=== PATIENT | female | born 1955 | race Caucasian/White ===

== ENCOUNTER → 2018-05-05 | Outpatient (CLI) | payer OTHER ==
[~2018-05-05] VITALS: Ht 152.4 cm; Wt 60.8 kg
[~2018-05-05] MED LIST: ASPIR 8181 MG PO; ATIVAN0.5 MG PO; ATORVASTATIN CA40 MG PO; BYSTOLIC 5 MG5 M1 PO; CALCIUM 600 +1 EAC8 PO; CELEBREX 200 M200 M1 PO; CENTRUM SILVER1 EAC4 PO; COZAAR 25 MG TA25 M1 PO; DEXILANT60 MG PO; FLONASE 0.05%50 MCG NASAL; LASIX 20 MG TAB20 MG PO; LASIX 40 MG TAB40 M2 PO; LIPITOR80 MG PO; METFORMIN HCL500 MG PO; NORVASC2.5 MG PO; PLAVIX 75 MG TA75 M1 PO; RANEXA1000 MG PO; VITAMIN B-1100 M1 PO; WELLBUTRIN SR150 M1 PO; XANAX 0.25 MG0.25 MG PO
--- NOTE | ~2018-05-05 | CATHLAB ---
[facility] [place] [place] [address] INVASIVE PROCEDURE REPORT Name: HIPOLITO ALLISON Room #: REG [facility]#: [id number] Admission: 05/05/18 Attend Phys: Romain Maxwell MD Discharge: Date of : 59 Date of Service: 05/05/18 1637 Report #: [id number] THIS REPORT FOR: //name// APPROVED REPORT Study performed: 05/05/2018 09:14:58 Patient Details Patient Status: Out-Patient Room #: The patient is a 63 year-old female Event Personnel Romain Maxwell Maitre D', Lamont Mahoney RN, Cielo Ingram Sandifer, David Monitor Procedures Performed Art Access - R radial artery Left Heart Cath w/or w/o Coronaries [id number] [facility] [id number] Initial Mod Sed Same Phys/QHP Gr5y [id number] Hemostasis with Hemoband Indication Dyspnea, Positive stress test, Chest pain Risk Factors Hypercholesterolemia, Hypertension Previous Procedures/Diagnoses Previous CHF Procedure Narrative The patient was brought electively to the Cardiac Catheterization Laboratory and was prepped and draped in a sterile manner. The Right Wrist^ was infiltrated with 1% Lidocaine subcutaneous anesthesia. A TRANSRADIAL SLENDER 6F GLIDESHEATH KIT #[id number] sheath was inserted into the Right Radial Artery^. Coronary angiography was performed using coronary diagnostic catheters. The right coronary system was accessed and visualized with a JR 4 catheter. The left coronary system was accessed and visualized with a JL 3.5 catheter. The left ventricle was accessed and visualized with a JR 4 catheter. Closure device was deployed with a Fr VASC BAND R 24CM #[id number]. The patient tolerated the procedure well and there were no complications associated with the procedure. There was no hematoma. Intraoperative Conscious Sedation Sedation start time: 10:10 Case end Time: [facility] [address] [place] [address] INVASIVE PROCEDURE REPORT Name: HIPOLITO ALLISON Room #: REG [facility]#: [id number] Admission: 05/05/18 Attend Phys: Romain Maxwell MD Discharge: Date of : 59 Date of Service: 05/05/18 1637 Report #: [id number] 10:30 Fentanyl 25 mcg Versed 1.5 mg Fluoro Time: 2.26 minutes Dose: DAP 1918 cGycm2 246 mGy Contrast Type and Amount: Visipaque 60 ml Coronary Angiography The patient's coronary anatomy is right dominant. Diagnostic Cath Left Main Patent vessel, with no flow-limiting lesions. LAD Moderate size caliber vessel, traveling down the anterior wall and terminating at the apex. Essentially patent vessel with some minimal luminal irregularities at the proximal segment. Circumflex Moderate size caliber vessel, patent with no flow-limiting lesions. Supplies several OM vessels at the distal segment. OM1 Patent vessel, with no flow-limiting lesions. Right Coronary Patent vessel, with no flow-limiting lesions. R PDA Small-caliber vessel, with no flow-limiting lesions. Ramus Moderate size caliber vessel, with minimal luminal irregularities in the proximal segment. Left Ventriculography Left Ventriculography was not performed. Ejection Fraction was 55-60% based off patient's Echocardiogram. An LVEDP was measured and there is no gradient across the outflow tract. Hemodynamics The aortic pressure is 111/72 mmHg with a mean of 90 mmHg. The left ventricular pressure is 110/9 mmHg with a mean of mmHg. The left ventricular end diastolic pressure is 15 mmHg. Conclusion 1. Patent [place]hoe coronary arteries. 2. Minimal luminal irregularities as described above. 3. Right dominant system. 4. Recommend risk factor management. <ELECTRONICALLY SIGNED> By: Romain Maxwell MD 05/05/18 1637 1637 1637 Romain Maxwell MD /INF
--- NOTE | ~2018-05-05 | EKG ---
[address] [place] [address] ELECTROCARDIOGRAM REPORT Name: HIPOLITO ALLISON Room #: REG CLI [facility]#: [id number] Admission: 05/05/18 Attend Phys: Romain Maxwell MD Discharge: Date of : 59 Report #: [id number] THIS REPORT FOR: //name// [facility] Test Date: 2018-05-05 Test Time: 08:45:19 Pat Name: HIPOLITO ALLISON Department: Room: Gender: F [employer]org[employer] Attendant: Lindsey COLES : 1955 Requested By: Romain Maxwell Order Number: [id number] MD: Husam Jaimes Measurements Intervals [place] Rate: 53 P: 60 MI: 149 QRS: 8 QRSD: 122 T: -10 QT: 441 QTc: 414 Interpretive Statements Sinus rhythm Nonspecific ST and T wave abnormality Compared to ECG 03/30/2014 23:28:34 No significant change was found Electronically Signed On 05-05-2018 17:03:54 CDT by Husam Jaimes [email or web address] <ELECTRONICALLY SIGNED> By: Husam Jaimes MD, [facility] 05/05/18 1703 0845 0845 Husam Jaimes MD, [facility] /EPI
[2018-05-05 09:17] LABS: HEMATOCRIT 39.5 % (37.0-47.0); HEMOGLOBIN 13.7 gm/dL (12.0-15.0); MCH 29.7 pg (26.0-34.0); MCHC 34.8 g/dL (28.0-37.0); MCV 85.4 fL (80.0-100.0); RBC 4.62 mil/uL (4.20-5.00); RDW 13.7 % (10.5-14.5); WBC 4.7 thou/uL (4.0-11.0)
[2018-05-05 09:27] LABS: CALCIUM 8.9 mg/dL (8.5-10.1); CREATININE 1.4 mg/dL (0.6-1.0); POTASSIUM 3.6 mmol/L (3.5-5.1)
[2018-05-05 09:33] VITALS: BP 130/71
== END | disposition home or self-care (01) ==
LOC: CATH 08:19
PROVIDERS: Internal Medicine Cardiovascular Disease
DX: R94.39 Abnormal result of other cardiovascular function study (principal); I11.0 Hypertensive heart disease with heart failure; I50.9 Heart failure, unspecified; I34.1 Nonrheumatic mitral (valve) prolapse; I25.2 Old myocardial infarction; I49.9 Cardiac arrhythmia, unspecified; I42.9 Cardiomyopathy, unspecified; Z90.710 Acquired absence of both cervix and uterus; Z90.49 Acquired absence of other specified parts of digestive tract; Z98.890 Other specified postprocedural states; Z98.84 Bariatric surgery status; Z82.49 Family history of ischemic heart disease and other diseases of the circulatory system; Z79.899 Other long term (current) drug therapy